=== PATIENT | female | born 1940 | race Two or more races ===

== ENCOUNTER → 2016-07-06 | Day surgery (SDC) | payer OTHER ==
--- NOTE | 2016-07-03 10:20 | MH ---
cc: Dionna ROBLEOD M.D. DATE OF ADMISSION 07/06/2016 ADMISSION DIAGNOSIS Torn medial meniscus left knee now for arthroscopy left knee. ADMISSION HISTORY AND PHYSICAL This pleasant 76-year-old female is being admitted today for arthroscopy left knee due to a torn medial meniscus. She sustained an injury moving a sofa back in April. OTHER PAST HISTORY The patient has a history of: 1. Anxiety 2. Depression 3. Hypertension 4. Sleep apnea CURRENT MEDICATIONS Includes: 5. Lisinopril 6. Amlodipine 7. Diclofenac stopped before surgery. 8. Metformin 9. Atorvastatin 10. Levothyroxine 11. Mirtazapine 12. Sertraline PAST SURGICAL HISTORY Include: 1. Cholecystectomy 2. Partial thyroidectomy 3. Tonsillectomy 4. Hysterectomy SOCIAL HISTORY She does not smoke or drink. REVIEW OF SYSTEMS Noncontributory FAMILY HISTORY Noncontributory ALLERGIES She had no known allergies. PHYSICAL EXAMINATION We find a 76-year female well-developed, well-nourished oriented x3 complaining of pain in her left knee. VITAL SIGNS: Blood pressure 130/70, pulse 16 regular, respirations 16, temperature 98.2, pulse oximetry 97% on room air. HEENT: Eyes PERRL, EOMI. Ears, nose, mouth clear. NECK: Supple. LUNGS: Clear. HEART: Regular rate. ABDOMEN: Soft. Positive bowel sounds, nontender. EXTREMITIES: Reveal the left knee to be tender on palpation along the medial and lateral joint margins. No swelling or erythema. Neurovascularly intact to her toes. The MRI did reveal a torn medial meniscus. PLAN Admission for arthroscopy left knee today. The patient understands to use Hibiclens scrub and Bactroban preoperatively and was given prescription for postop pain control in the office. MD CRISTELA Treadwell/KRUNAL /10:03 AM /10:09 AM
[~2016-07-06] VITALS: Ht 160 cm; Wt 64.5 kg
[~2016-07-06] MED LIST: ACETAMINOPHEN 1000 MG/100 ML VIAL IV ONE; AMLO10TA2 PO; ASPI1TAB69 PO; ATOR40TA16 PO; BUPIVACAINE HCL PF 0.25% 30 ML VIAL ONE; BUPIVACAINE/EPINEPHRINE 0.25% 50 ML VIAL ONE; CHLORHEXIDINE GLUCONATE 2 % 1 PACK (2 CLOTHS) TOPICAL PRN; CHLORHEXIDINE GLUCONATE 4% SOLN 120 ML BTL TOPICAL SCH; DEXAMETHASONE SOD PHOS 4 MG/ML VIAL ONE; DEXAMETHASONE SOD PHOS 4 MG/ML VIAL OTHER ONE; DICL75TA PO; DO NOT ADM ANY ANTICOAGULANT DRUGS PRN; FAMOTIDINE 20 MG/2 ML VIAL ONE; INSULIN HUMAN REGULAR 1,000 UNITS/10 ML VIAL SQ PRN; LACTATED RINGER'S 1000 ML IV PRN; LEVO75TA3 PO; LISI30TA4 PO; METF500T PO; METOPROLOL TARTRATE 25 MG TAB PO PRN; MIDAZOLAM HCL 2 MG/2 ML VIAL ONE; MIRT1TAB PO; ONDANSETRON HCL 4 MG/2 ML VIAL IV PUSH ONE; POVIDONE IODINE 5% (ANTISEPSIS KIT) 4 APPLICATIONS EACH NARE PRN; PROPOFOL 200 MG/20 ML AMP IV ONE; SERT-129 PO; SODIUM CHLORID 0.9% 500 ML IV PRN; ceFAZolin 2 GM PREMIX 50 ML IV SCH; ceFAZolin INJ 1,000 MG VIAL IV ONE; ePHEDrine/NS 25 MG/5 ML SYR IV ONE; fentaNYL CITRATE 250 MCG/5 ML AMP ONE
[2016-07-06 12:45] VITALS: BP 150/82; PULSE 61; RESP 18; TEMP 98.4; O2SAT 96
[2016-07-06 13:46] LABS: AUTOMATED NEUTROPHIL # 4.7 TH/MM3 (1.8-7.7); BASOPHIL # 0.1 TH/MM3 (0-0.2); BASOPHIL % 0.9 % (0.0-2.0); EOSINOPHIL # 0.2 TH/MM3 (0-0.4); EOSINOPHIL % 2.7 % (0.0-4.0); HEMATOCRIT 36.1 % (35.0-46.0); HEMO FLAGS DIFF FINAL; LYMPH % 29.6 % (9.0-44.0); LYMPHOCYTE # 2.3 TH/MM3 (1.0-4.8); MEAN CELL VOLUME 80.6 FL (80.0-100.0); MEAN CORPUSCULAR HEMOGLOBIN 26.5 PG (27.0-34.0); MEAN CORPUSCULAR HGB CONC 32.9 % (32.0-36.0); MONO % 6.1 % (0.0-8.0); NEUT % 60.7 % (16.0-70.0); PLATELET COUNT 244 TH/MM3 (150-450); RED BLOOD COUNT 4.48 MIL/MM3 (4.00-5.30); RED CELL DISTRIBUTION WIDTH 15.3 % (11.6-17.2); WHITE BLOOD COUNT 7.7 TH/MM3 (4.0-11.0)
[2016-07-06 13:55] LABS: APTT (PATIENT) 22.6 SEC (24.3-30.1); PROTHROMBIN TIME - PATIENT 10.9 SEC (9.8-11.6)
[2016-07-06 14:02] LABS: ANION GAP 8 MEQ/L (5-15); AST (GOT) 18 U/L (15-37); BICARBONATE 25.3 MEQ/L (21.0-32.0); BLOOD UREA NITROGEN 28 MG/DL (7-18); CHLORIDE 107 MEQ/L (98-107); GLOMERULAR FILTRATION RATE 52 ML/MIN (>89); POTASSIUM 4.2 MEQ/L (3.5-5.1); SODIUM (NA) 140 MEQ/L (136-145)
[2016-07-06 14:05] LABS: ALKALINE PHOSPHATASE 109 U/L (45-117); ALT (GPT) 33 U/L (10-53); TOTAL BILIRUBIN ADULT 0.4 MG/DL (0.2-1.0)
[2016-07-06 14:09] LABS: BLOOD, URINE NEG (NEG); COMMENT (UR) CULT NOT INDICATED; CULTURE IF INDICATED CULT NOT INDICATED; GLUCOSE,URINE NEG (NEG); KETONE, URINE NEG (NEG); MUCUS URINE FEW /lpf (OCC); NITRITE,URINE NEG (NEG); SQUAMOUS EPITHELIAL CELL URINE <1 /hpf (0-5); URINE COLOR LIGHT-YELLOW (YELLW/STRAW)
--- NOTE | 2016-07-06 14:34 | EKG ---
Date Performed: 07/06/2016 Time Performed: 13:46:13 PTAGE: 76 years EKG: SINUS BRADYCARDIA BORDERLINE ECG NO PREVIOUS TRACING DOCTOR: Saroj Mixon Interpretating Date/Time 07/06/2016 14:33:02
[2016-07-06 18:50] VITALS: BP 143/69; PULSE 59; RESP 20; TEMP 97.4; O2SAT 97
--- NOTE | 2016-07-07 13:39 | MP ---
cc: Dionna ROBLEDO M.D. DATE OF SURGERY 07/06/2016 PREOPERATIVE DIAGNOSIS Internal derangement left knee. 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 SURGERY PERFORMED Arthroscopy, excision of torn medial and lateral menisci and chondroplasty medial femoral condyle. SURGEON Dr. Robledo RETAIL SPECIALIST SANDIE Bell ANESTHESIA LMA PROCEDURE The patient was brought to the operating room and placed on the operating room table in the supine position. After successful induction of general anesthesia, the patient's left leg was prepped and draped in the usual manner. The knee was then placed in a knee jose and tightened. Arthroscopic examination was then performed by making a stab wound over the proximal superior and medial aspect of the patellofemoral joint for insertion of the inflow cannula and fluid, followed by stab wounds over the medial and lateral joint margins respectively for insertion of the arthroscope, shaver and probe. Arthroscopic examination was then performed which revealed an intact anterior cruciate, intact patellofemoral joint. The medial meniscus was found to have an acute tear and parrot-beaked type in the posterior horn which was removed using the ArthroCare cutter, shaver, and probe to afford a smooth surface. A small defect which may be traumatic in nature was noted in the medial weightbearing surface which was smoothed using the ArthroCare system. The lateral meniscus found to have a small peripheral horn tear removed using ArthroCare system and shaver. The rest the knee joint found to be intact. The wound was irrigated copiously with lactated Ringer's solution. Excess fluid removed. 2 cc of Decadron and 4 cc of 0.25% Marcaine plain was inserted the knee joint. Skin approximately with interrupted 4-0 nylon suture and a 3-0 nylon suture. Wet and then dry dressing applied to the wound, followed by Xeroform gauze, sterile dressing and thigh-high Blaise wrap. No tourniquet utilized. Estimated blood loss 10 mL. Sponge count correct. The patient of procedure well and left the operating in satisfactory condition. MD CRISTELA Treadwell/KRUNAL /5:22 PM /1:32 PM
== END | disposition home or self-care (01) ==
LOC: HSDC 12:20
PROVIDERS: ATTEND Surgery
DX: S83.282A Other tear of lateral meniscus, current injury, left knee, initial encounter (principal); S83.242A Other tear of medial meniscus, current injury, left knee, initial encounter; M94.262 Chondromalacia, left knee; I10 Essential (primary) hypertension; F41.9 Anxiety disorder, unspecified; G47.30 Sleep apnea, unspecified
CPT/HCPCS: 01400; 29880; 80053; 81001; 85025; 85610; 85730; 93005; J0131; J0690; J1100; J2250; J2405; J3010